=== PATIENT | female | born 2005 | race Hispanic/Latino ===

== ENCOUNTER 2024-06-09 20:43 | Emergency (ER) | payer SELFPAY ==
[~2024-06-09] VITALS: Ht 149.9 cm; Wt 61.2 kg
[2024-06-09] MEDS: FAMOTIDINE 20MG VIAL IV STA (21:37)
[2024-06-09 21:47] LABS: BASOPHILS # (AUTO) 0.06 K/uL (0.00-0.20); BASOPHILS % (AUTO) 0.5 % (0.0-5.0); EOSINOPHILS # (AUTO) 0.13 K/uL (0.00-0.70); EOSINOPHILS % (AUTO) 1.1 % (0.0-8.0); HEMATOCRIT 44.1 % (36-48); IMMATURE GRANULOCYTE ABSOLUTE 0.05 K/uL (0-1); LYMPHOCYTES # (AUTO) 3.5 K/uL (1.0-4.8); LYMPHOCYTES % (AUTO) 29.3 % (21.0-51.0); MEAN CORPUSCULAR HEMOGLOBIN 30.6 pg (27.0-33.0); MEAN CORPUSCULAR HGB CONC 32.7 g/dL (32.0-36.0); MEAN CORPUSCULAR VOLUME 93.6 fL (80-100); MONOCYTES # (AUTO) 0.8 K/uL (0.1-1.0); NEUTROPHILS # (AUTO) 7.4 K/uL (1.8-7.7); NEUTROPHILS % (AUTO) 61.7 % (40.0-77.0); PLATELET COUNT (AUTO) 269 K/uL (130-400); RED BLOOD CELL COUNT(AUTO) 4.71 MIL/uL (4.00-5.50); RED CELL DISTRIBUTION WIDTH 11.9 % (11.0-15.5); WHITE BLOOD COUNT (AUTO) 11.9 K/uL (4.8-10.8)
[2024-06-09 21:55] LABS: CREATININE 0.6 mg/dL (0.5-1.0); POTASSIUM 3.8 mmol/L (3.5-5.1)
[2024-06-09] MEDS ORDERED: FAMO-136 PO (22:11)
--- NOTE | 2024-06-09 22:11 | ERN ---
ED Note History of Present Illness Stated Complaint: ABD PAIN Chief Complaint: Abdominal Pain Time Seen by MD: 20:57 Time Seen by Midlevel: 21:00 Dictation: 18-year-old female with no past medical history coming in complaining of epigastric pain. Patient states sometimes she also sees blood in her stool. At the time of interview patient is eating a bag of TAKIs, which are hot chips. Allergies: Coded Allergies: No Known Allergies (Unverified Allergy, Unknown, 06/09/24) Past Medical History Past Medical History: No Pertinent History Surgical History: Tonsillectomy Review of System Dictation Constitutional: Negative for fever,chills, and weight loss Eyes: Negative for injury, pain,redness, and discharge ENT: Negative for injury,pain or swelling Cardiovascular: Negative for chest pain, palpitations, and edema Respiratory: Negative for shortness of breath, cough, and wheezing, Abdomen/GI: Complaining of epigastric pain, no nausea, no vomiting, no diarrhea, and no constipation Back: Negative for injury and pain : Negative for injury, bleeding and discharge MS/Extremity: Negative for injury and deformity Skin: Negative for rash, and discoloration Neuro: Negative for headache, weakness, numbness, tingling, and seizure Psych: Negative for suicide ideation, homicidal ideation, and hallucinations Review of Systems: was completed Initial Vital Sign VS Vital Signs Date Time Temp Pulse Resp B/P (MAP) Pulse Ox O2 Delivery O2 Flow Rate FiO2 06/09/24 20:44 97.7 85 20 108/67 99 Room Air 06/09/24 21:31 0 21 Physical Exam Dictation General: awake, alert, NAD Head/Face: Normocephalic, atraumatic Eyes: PERRL, EOMI, vision at baseline ENT: oral cavity clear, TMs clear, no signs of infection Neck: Trachea midline, supple, no nuchal rigidity Cardiovascular: RRR, normal S1/S2, No MRGs, no JVD Respiratory: CTAB, no respiratory distress, No rales or wheezes Abdomen: Soft, non-tender, non-distended, normal bowel sounds, no guarding or rebound. Skin: Warm, dry, normal turgor, no rash MS/Extremity: Pulses equal, no cyanosis, neurovascular intact, FROM Neuro: COAx4, GCS 15, strength 5/5, CN 2-12 intact, normal cerebellar exam, normal gait, Psych: Normal behavior, mood, and affect normal Rectal exam done with nurse as iso coordinator. No anthony blood, no external or internal hemorrhoids Results (Laboratory/Radiology) Laboratory/Radiology Laboratory Tests Test 06/09/24 21:32 06/09/24 21:56 White Blood Count 11.9 K/uL (4.8-10.8) H Red Blood Count 4.71 MIL/uL (4.00-5.50) Hemoglobin 14.4 g/dL (12.0-16.0) Hematocrit 44.1 % (36-48) Mean Corpuscular Volume 93.6 fL (80-100) Mean Corpuscular Hemoglobin 30.6 pg (27.0-33.0) Mean Corpuscular Hemoglobin Concent 32.7 g/dL (32.0-36.0) Red Cell Distribution Width 11.9 % (11.0-15.5) Platelet Count 269 K/uL (130-400) Mean Platelet Volume 9.6 fL (7.5-10.5) Immature Granulocyte % (Auto) 0.4 % (0-1) Neutrophils (%) (Auto) 61.7 % (40.0-77.0) Lymphocytes (%) (Auto) 29.3 % (21.0-51.0) Monocytes (%) (Auto) 7.0 % (3.0-13.0) Eosinophils (%) (Auto) 1.1 % (0.0-8.0) Basophils (%) (Auto) 0.5 % (0.0-5.0) Neutrophils # (Auto) 7.4 K/uL (1.8-7.7) Lymphocytes # (Auto) 3.5 K/uL (1.0-4.8) Monocytes # (Auto) 0.8 K/uL (0.1-1.0) Eosinophils # (Auto) 0.13 K/uL (0.00-0.70) Basophils # (Auto) 0.06 K/uL (0.00-0.20) Absolute Immature Granulocyte (auto 0.05 K/uL (0-1) Nucleated Red Blood Cells 0.0 % (0.0-0.19) Sodium Level 139 mmol/L (136-145) Potassium Level 3.8 mmol/L (3.5-5.1) Chloride Level 103 mmol/L (101-111) Carbon Dioxide Level 30 mmol/L (21-32) Blood Urea Nitrogen 8 mg/dL (7-18) Creatinine 0.6 mg/dL (0.5-1.0) Glomerular Filtration Rate Calc 132 mL/min (>90) Random Glucose 102 mg/dL (70-105) Total Calcium 9.4 mg/dL (8.5-10.1) Human Chorionic Gonadotropin, Quant 0 mIU/mL (0-5) Stool Occult Blood NEGATIVE (NEGATIVE) Labs Reviewed?: Yes ED Course ED Course Orders Procedure Category Date Status Time Cbc With Differential LAB 06/09/24 Complete 21:10 Basic Metabolic Panel LAB 06/09/24 Complete 21:10 Hcg,Quantitative LAB 06/09/24 Complete 21:10 Occult Blood Stool LAB 06/09/24 Complete Single Only 21:10 Famotidine 20mg Vial PHA 06/09/24 Complete (Pepcid 20mg Vial) 21:29 Current Medications Medications (Trade) Dose Ordered Sig/Cecy Route PRN Reason Start Time Stop Time Status Last Admin Dose Admin Famotidine (Pepcid 20mg Vial) 20 mg ONCE STAT IV 06/09/24 21:29 06/09/24 21:31 DC 06/09/24 21:37 Vital Signs Date Time Temp Pulse Resp B/P (MAP) Pulse Ox O2 Delivery O2 Flow Rate FiO2 06/09/24 21:31 98.4 80 20 105/62 98 Room Air* 0 21 06/09/24 20:44 97.7 85 20 108/67 99 Room Air Medical Decision Making MDM MDM: 18-year-old female with no past medical history coming in complaining of epigastric pain. Patient states sometimes she also sees blood in her stool. At the time of interview patient is eating a bag of TAKIs, which are hot chips. Blood work unremarkable. Occult blood is negative Discussed with the patient's findings. Educated patient to stop eating any spicy foods. Educated to follow up with PCP in 1-2 days and return to the hospital if symptoms worsen. Patient verbalized understanding, answered all questions. Differential diagnosis: GI bleed, gastritis, abdominal pain Rationale: Tests considered and ordered secondary to shared decision making include: Previous outside records reviewed: Old ER visits. Risk of complication and/or morbidity or mortality of patient management: None Medications-Per medication reconciliation Need for hospitalization: Patient does not meet criteria for hospitalization. Need for emergency major/minor surgery: No There are no social concerns with this patient. Prescription drug management Prescriptions will include symptomatic care Patient's prior external medical records from other ER visits were reviewed by me as indicated. Prior testing and results from previous visits were reviewed. Prior tests were taken into account with medical decision making and resource utilization, independent historian/historians were used to obtain complete medical history. I independently interpreted the test that were performed, results were reviewed by me and considered findings on radiology if ordered. Medical management and examination interpretation discussions were had by me with other qualified healthcare professionals as indicated for the patient's care. DX & DISP Disposition: Discharge Departure Impression: Primary Impression: Gastritis Condition: Stable Scripts Famotidine (Pepcid) 20 Mg Tablet 1 TAB PO BID for 30 Days, #60 TAB 0 Refills Prov: JESSIE ASCENCIO CITRIX ADMINISTRATOR 06/09/24 Additional Instructions: Stopped eating any spicy, fried, or fatty foods. Referrals: SELF,REFERRAL (PCP) Time of Disposition: 22:10 I have reviewed the case, and I agree with, Diagnosis and Plan JESSIE ASCENCIO CITRIX ADMINISTRATOR Jun 09, 2024 22:11
[2024-06-09 22:13] VITALS: BP 102/69; PULSE 76; RESP 16; TEMP 98.1; O2SAT 98
== END 2024-06-09 22:37 | disposition home or self-care (01) ==
LOC: EDH 20:43
DX: K29.70 Gastritis, unspecified, without bleeding (principal); R10.2 Pelvic and perineal pain; Z90.89 Acquired absence of other organs
CPT/HCPCS: 99283; 96374; 82270; 80048; 84702; 85025; 36415; 82272; J3490